=== PATIENT | female | born 1960 | race Caucasian/White ===

== ENCOUNTER → 2017-08-06 | Outpatient (CLI) | payer BC ==
[~2017-08-06] MED LIST: Advil,Nuprin,Motrin PO; BENICAR20 MG PO; BENICAR40 MG PO; Colace PO; ENDOCET 5-3251 EACH; Halfprin PO; LEVOFLOXACIN750 MG PO; LEVOTHYROXINE PO; Levothroid,Synthroid PO; METRONIDAZOLE500 MG PO; Milk Of Magnesia,MOM PO; Omega III EPA + DHA PO; Percocet 5/325,Endoc PO; Pyridoxine,Vitamin B PO; Resveratrol PO; Theragran PO; Tylenol Extra Streng PO
== END | disposition home or self-care (01) ==
LOC: RES 07:48
DX: R91.8 Other nonspecific abnormal finding of lung field (principal)
CPT/HCPCS: 94010; 94726; 94729